=== PATIENT | female | born 2000 | race Two or more races ===

== ENCOUNTER 2024-04-23 22:54 | Emergency (ER) | payer MEDICAID ==
[~2024-04-23] VITALS: Ht 157.5 cm; Wt 81.2 kg
[2024-04-23 23:38] LABS: Rapid Influenza B Negative (Negative)
[2024-04-23 23:40] LABS: Rapid Influenza A Positive (Negative)
[2024-04-23 23:55] LABS: COVID19 ANTIGEN SOFIA FIA NEGATIVE (NEGATIVE)
[2024-04-24] MEDS ORDERED: TAMIFLU PO (00:06)
[2024-04-24] MEDS ORDERED: PROM1SOL4 PO (00:06)
[2024-04-24] MEDS ORDERED: IBUP-1455 PO (00:06)
--- NOTE | 2024-04-24 00:07 | ED.PDOC ---
History of Present Illness HPI Comments 24-year-old female complaining of cough and fever which started yesterday continued today. Patient has been having intermittent body aches. No nausea no vomiting no diarrhea. Nothing makes it better, nothing makes it worse. No recent sick contacts. No recent travel. Chief Complaint: Flu like Time Seen by MD: 23:01 Reviewed Notes: Nurses Notes Information Source: Patient Mode of Arrival: Ambulatory Severity: Mild Constitutional: reports: fatigue, fever; denies: chills, diaphoresis, malaise, sweats, weakness, others EENTM: denies: blurred vision, double vision, ear bleeding, ear discharge, ear drainage, ear pain, ear ringing, eye pain, eye redness, hearing loss, mouth pain, mouth swelling, nasal discharge, nose bleeding, nose congestion, nose pain, photophobia, tearing, throat pain, throat swelling, voice changes, others Respiratory: reports: cough Cardiovascular: denies: chest pain, dizzy spells, diaphoresis, Dyspnea on exertion, edema, irregular heart beat, left arm pain, lightheadedness, palpitations, PND, syncope, others Gastrointestinal: denies: abdomen distended, abdominal pain, blood streaked bowels, constipated, diarrhea, dysphagia, difficulty swallowing, hematemesis, melena, nausea, poor appetite, poor fluid intake, rectal bleeding, rectal pain, vomiting, others Genitourinary: denies: abnormal vagina bleeding, burning, dyspareunia, dysuria, flank pain, frequency, hematuria, incontinence, pain, , vagina discharge, urgency, others Neurological: denies: dizziness, fainting, headache, left sided numbness, left sided weakness, numbness, paresthesia, pre-existing deficit, right sided numbness, right sided weakness, seizure, speech problems, tingling, tremors, weakness, others Musculoskeletal: denies: back pain, gout, joint pain, joint swelling, muscle pain, muscle stiffness, neck pain, others Allergic/Immunocompromised: denies: Difficulty Healing, Frequent Infections, Hives, Itching, others Physical Exam General Appearance: No Apparent Distress, Normal HEENT: Normal ENT Inspection, Pharynx Normal, TMs Normal Neck: Full Range of Motion, Non-Tender, Normal, Normal Inspection Respiratory: Chest Non-Tender, Lungs Clear, No Accessory Muscle Use, No Respiratory Distress, Normal Breath Sounds Cardiovascular: No Edema, No JVD, No Murmur, No Gallop, Normal Peripheral Pulses, Regular Rate/Rhythm Breast Exam: Deferred Gastrointestinal: No Organomegaly, Non Tender, No Pulsatile Mass, Normal Bowel Sounds, Soft Genitalia: Deferred Pelvic: Deferred Rectal: Deferred Extremities: No calf tenderness, Normal capillary refill, Normal inspection, Normal range of motion, Non-tender, No pedal edema Musculoskeletal : Apperance: Normal Neurologic: Alert, flower grader II-XII nml as Tested, No Motor Deficits, Normal Affect, Normal Mood, No Sensory Deficits Cerebellar Function: Normal Reflexes: Normal Skin: Dry, Normal Color, Warm Lymphatic: No Adenopathy Was a procedure done? Was a procedure done?: No Differential Dx Considerations may include: URI, influenza, COVID, strep throat, pharyngitis, pneumonia X-Ray, Labs, Meds, VS Vital Signs Date Time Temp Pulse Resp B/P (MAP) Pulse Ox O2 Delivery O2 Flow Rate FiO2 04/23/24 23:06 98.5 85 20 125/77 (93) 99 Lab Test 04/23/24 23:05 Range/Units Influenza Type A Antigen Positive Negative Influenza Type B Antigen Negative Negative SARS-CoV-2 Antigen (Rapid) Negative NEGATIVE X-Ray, Labs, Meds, VS Comment Imaging: X-rays and CT scans were reviewed and interpreted by this provider, imaging shows no fractures and no pathological disease. Pending radiology review. Laboratory: Labs reviewed and interpreted by this provider. Positive influenza Patient has prior medical visits reviewed. Med reconciliation performed Vital signs reviewed Time of 1ST Reevaluation: 00:07 Reevaluation 1ST: Improved Patient Education/Counseling: Diagnosis, Treatment, Need For Follow Up (Follow up with PCP in the next 3-5 days.) Family Education/Counseling: Diagnosis Departure 1 Departure Time of Disposition: 00:05 Impression: Primary Impression: Influenza A Disposition: 01 HOME / SELF CARE / HOMELESS Condition: Fair e-Prescriptions Ibuprofen Micronized (Ibuprofen) 800 Mg Tab 800 MG PO TID PRN, #30 TAB Prov: GROVER SANTIAGOP 04/24/24 Promethazine-Dm (Promethazine Dm 6.25-15 mg/5Ml) 1 Melanie Melanie 5 ML PO TID PRN, #240 ML Prov: GROVER SANTIAGO WIRE ROLLER 04/24/24 Oseltamivir Phosphate (Tamiflu) 75 Mg Cap 75 MG PO BID for 5 Days, #10 CAP Prov: GROVER SANTIAGO 04/24/24 Discharged With: Self Critical Care Note Critical Care Time?: No Stability Stability form required: No Heart Score Heart Score: Heart Score Response (Comments) Value History N/A 0 EKG N/A 0 Age N/A 0 Risk Factors N/A 0 Troponin N/A 0 Total 0 GROVER SANTIAGO Apr 24, 2024 00:07
[2024-04-24 02:43] VITALS: BP 126/90; PULSE 74; RESP 18; TEMP 98.9; O2SAT 99
== END 2024-04-24 02:48 | disposition home or self-care (01) ==
LOC: ER 22:54
DX: J10.1 Influenza due to other identified influenza virus with other respiratory manifestations (principal); Z20.822 Contact with and (suspected) exposure to COVID-19
CPT/HCPCS: 36415; 87426; 87804